=== PATIENT | female | born 1985 | race Caucasian/White ===

== ENCOUNTER 2017-04-10 00:01 | Outpatient (CLI) | payer OTHER, MEDICARE, SELFPAY ==
[2017-04-20 17:45] LABS: Absolute Lymphocyte Count 1.67 X10^3/ul (0.83-4.51); Absolute Neutrophil Count 6.1 X10^3/uL (2.0-7.7); Basophil# 0.02 X10^3/uL; Basophil% 0.2 % (0-1); Eosinophils% 1.2 % (0-5); Hematocrit 32.4 % (37-47); Lymphocyte # 1.67 X10^3/ul (4.0); Mean Corpuscular Hgb 30.2 pg (27.0-32.0); Mean Platelet Vol. 10.6 fl (6.2-12.0); Monocyte# 0.43 X10^3/uL; Monocyte% 5.2 % (0-10); Neutrophil % 73.3 % (47-70); Platelet Count 219 K/mm3 (150-450); RBC Distribution Width CV 13.7 % (11.6-14.6); RBC Distribution Width SD 43.2 fl (35.1-43.9); Red Blood Count 3.64 M/mm3 (4.2-5.4); White Blood Count 8.3 K/mm3 (4.4-11.0)
[2017-04-20 17:46] LABS: POSITIVE COUNT NO; POSITIVE DIFFERENTIAL NO; POSITIVE MORPHOLOGY NO
--- OUTSIDE RECORDS SUMMARY | 2017-07-28 12:05 | XMS RPT_ITS ---
:1985 Author Organization OHIP Care Team Providers Name Role Phone LUCY CHEUNG Attending Unavailable LUCY CHEUNG Attending Unavailable SKYE LUCY Mari Referring Unavailable SKYE LUCY Mari Attending Unavailable SKYE LUCY L Referring Unavailable SKYE LUCY L Referring Unavailable SKYE LUCY L Attending Unavailable SKYE LUCY L Referring Unavailable JOE MEJIA Attending Unavailable SKYE LUCY L Referring Unavailable SKYE LUCY L Attending Unavailable ELENA DUNHAM (PARTS SALVAGER) Attending Unavailable ELENA DUNHAM (PARTS SALVAGER) Referring Unavailable Elena Dunham CHIEF PETROLEUM ENGINEER-C Attending Unavailable Joe Yun Primary Care Unavailable PROBLEMS PROBLEMS DATE TYPE CONDITION / CODE ATTENDING STATUS SOURCE 06/28/2017 Active Anemia Active [facility] complicating [facility] , Repository unspecified trimester / O99.019(ICD-10) 06/01/2017 Active 26 weeks gestation NA Active [facility] of / [facility] Z3A.26(ICD-10) Repository 06/01/2017 Active Encounter for NA Active [facility] supervision of [facility] other normal Repository , second trimester / Z34.82(ICD-10) 06/01/2017 Active Anemia NA Active [facility] complicating [facility] , third Repository trimester / O99.013(ICD-10) 05/03/2017 Active Supervision of NA Active [facility] with [facility] history of Repository pre-term labor, unspecified trimester / O09.219(ICD-10) 05/03/2017 Active Supervision of Active [facility] other high risk [facility] pregnancies, Repository second trimester / O09.892(ICD-10) 10/20/2015 Active Iron deficiency NA Active [facility] anemia, [facility] unspecified / Repository D50.9(ICD-10) 05/03/2017 Active 22 weeks gestation NA Active [facility] of / [facility] Z3A.22(ICD-10) Repository PROCEDURES PROCEDURES No Procedure Records FoundRESULTS RESULTS CNPN Observed: 07/05/2017 Status: COMPLETED Source: [place] 12:00 AM [facility] REPOSITORY Telephone (WOOB) -------NARDA ROSEN ([id number]) 1985 [facility] Time Provider Department07/05/17 LUCY CHEUNG WOOB During your visit today, we recorded the following information about you:Brenda Campbell RN 07/05/2017 10:07 AM SignedPatient is 31w1d . Was seen for last OB check on 06/28 and talked withDr Skye about cough. Patient states symptoms resolved and now today hascough that has returned. has sdeveloped a cough as well. Denies anyfever, shortness of breath, dyspnea or congestion. Baby active. Denies anyvaginal bleeding or abnormal discharge. States she has occasional BraxtonHicks. Next OB visit 07/12. Patient advised to run humidifier, cough drops,Robitussin. See PCP is symptoms worsen, develops a fever or PRN. See us ifdecreased FM or PRN problemsLilibeth Toscano RN 2017 1:44 PM SignedPatient calling to say she was instructed to call PCP for symptoms below. Shesays she had these same symptoms about 3 weeks ago. She states that the dayshe began with cough 3 weeks ago and today she coughed clear mucous with bloodtinge. She has no nasal drainage. She is using humidifier, cough drops andRobitussin as previously instructed. She is asking for PCP recommendationPlease review and advise.Padmini Vail MD 2:46 PM SignedOkay to try Delsym over the counter cough med. Would try this beforeconsidering cough meds with codeine.Follow up of signs of possible bacterial infection to determine if need .abt.Janet Capps LPN 07/05/2017 3:43 PM SignedPatient notified of results and provider' s instructions. Patient verbalizesunderstanding.Janet Cheung MD 2017 5:39 PM Signedagree w/ below. Lucy Cheung, [facility] Centerergies As of Date: 07/05/2017 Noted Allergy ReactionLATEX 02/17/2011 10 - AnaphylaxisDate Reviewed: 06/28/2017Reviewed by: Lucy Cheung - Fully AssessedReason for Visit: Cough [28]Prescriptions as of 07/05/2017 Sig: OSELTAMIVIR 75 MG CAPSULE VITAMIN, CALCIUM,MINE* Take 1 tablet by mouth once d* LANSOPRAZOLE 30 MG CAPSULE,DE* Take 1 capsule by mouth twice* CATHETER 12 FR 12 Slovenian catheter for self c* CATHETER 12 FR Use 6 to 8 times daily and as*Problem List As Of Date 07/05/2017 Noted Resolved Neurogenic bladder [N31.9] INVALID FOR* More... Closed spina bifida (HCC) [Q05.9] More... Anemia [D64.9] More... Insomnia [G47.00] SUPRF HIGH RISK NEC [V23.89] [O09.899]INVALID FOR*04/02/2014 More... Patient request for diagnostic testing [Z01.89] INVALID FOR*03/06/2012 More... GBS (group B Streptococcus carrier), +RV cultur*INVALID FOR*02/21/2014 More... Short stature [R62.52] INVALID FOR* History of delivery, currently *INVALID FOR* More... History of delivery [Z87.51] INVALID FOR*01/14/2016 More... Supervision of other high risk pregnancies, sec*INVALID FOR* Antepartum anemia in second trimester [O99.012] INVALID FOR*01/14/2016 More... Iron deficiency anemia [D50.9] INVALID FOR* More... Iron malabsorption [K90.9] INVALID FOR* Late care affecting in secon*INVALID FOR* More... Status:Closed by JANET CAPPS LPN on 07/05/17 CBC AND DIFFERENTIAL Collected: 06/28/2017 Status: F Source: [place] 11:02 AM [facility] [place] REPOSITORY TYPE CODE TESTS RESULT OUT OF REFERENCE UNITS RANGE LAB WBC High 3.70-11.00 k/uL WBC 16.14 LAB RBC Low 3.90-5.20 m/uL RBC 3.53 LAB HGB Low 11.5-15.5 g/dL Hemoglobin 10.2 LAB HCT Low 36.0-46.0 % Hematocrit 33.5 LAB MCV 80.0-100.0 fL MCV 94.9 LAB MCH 26.0-34.0 pG MCH 28.9 LAB MCHC Low 30.5-36.0 g/dL MCHC 30.4 LAB RDWCV 11.5-15.0 % RDW-CV 13.1 LAB PLTCT 150-400 k/uL Platelet 350 Count LAB MPV 9.0-12.7 fL MPV 10.5 LAB ANEUT % Neut% 84.2 LAB AANEUT High 1.45-7.50 k/uL Abs Neut 13.59 LAB ALYMP % Lymph% 10.2 LAB AALYMP 1.00-4.00 k/uL Abs Lymph 1.64 LAB AMONO % Harney% 4.5 LAB AAMONO <0.87 k/uL Abs Harney 0.73 LAB AEOS % Eosin% 0.9 LAB AAEOS <0.46 k/uL Abs Eosin 0.15 LAB ABASO % Baso% 0.2 LAB AABASO <0.11 k/uL Abs Baso 0.03 LAB AUNRBC High 0 /100 WBC NRBCs 0.1 LAB ABNRBC High <0.01 k/uL Absolute nRBC 0.01 LAB DTYP DTYPE Auto Diff Performed By: #### CBCDIF ####[facility], [place] [phone] CBC AND DIFFERENTIAL Collected: 06/01/2017 Status: F Source: [place] 1:23 PM [facility] REPOSITORY TYPE CODE TESTS RESULT OUT OF REFERENCE UNITS RANGE LAB WBC 3.70-11.00 k/uL WBC 7.52 LAB RBC Low 3.90-5.20 m/uL RBC 3.66 LAB HGB Low 11.5-15.5 g/dL Hemoglobin 11.2 LAB HCT Low 36.0-46.0 % Hematocrit 34.9 LAB MCV 80.0-100.0 fL MCV 95.4 LAB MCH 26.0-34.0 pG MCH 30.6 LAB MCHC 30.5-36.0 g/dL MCHC 32.1 LAB RDWCV 11.5-15.0 % RDW-CV 13.4 LAB PLTCT 150-400 k/uL Platelet 204 Count LAB MPV 9.0-12.7 fL MPV 11.6 LAB ANEUT % Neut% 75.1 LAB AANEUT 1.45-7.50 k/uL Abs Neut 5.64 LAB ALYMP % Lymph% 19.0 LAB AALYMP 1.00-4.00 k/uL Abs Lymph 1.43 LAB AMONO % Harney% 4.5 LAB AAMONO <0.87 k/uL Abs Harney 0.34 LAB AEOS % Eosin% 1.3 LAB AAEOS <0.46 k/uL Abs Eosin 0.10 LAB ABASO % Baso% 0.1 LAB AABASO <0.11 k/uL Abs Baso <0.03 LAB AUNRBC 0 /100 WBC NRBCs 0.0 LAB ABNRBC <0.01 k/uL Absolute nRBC <0.01 LAB DTYP DTYPE Auto Diff Performed By: #### CBCDIF, IRON, FERR ####[address] [phone] IRON AND TIBC Collected: 06/01/2017 Status: F Source: [place] 1:23 PM [facility] REPOSITORY TYPE CODE TESTS RESULT OUT OF REFERENCE UNITS RANGE LAB IRN 41-186 ug/dL Iron 157 LAB TIBC High 232-386 ug/dL TIBC 400 LAB SAT 15-57 % Transferrin 39 Saturatn Performed By: #### CBCDIF, IRON, FERR ####[address] [phone] FERRITIN Collected: 06/01/2017 Status: F Source: [place] 1:23 PM [facility] REPOSITORY TYPE CODE TESTS RESULT OUT OF REFERENCE UNITS RANGE LAB FERR 14.7-205.1 ng/mL Ferritin 25.9 Performed By: #### CBCDIF, IRON, FERR ####[facility] [address] [place], [place] [phone] 50G, 1HR GEST. Collected: 06/01/2017 Status: F Source: [place] GSCRN 1:23 PM [facility] REPOSITORY TYPE CODE TESTS RESULT OUT OF REFERENCE UNITS RANGE LAB GLUP 74-134 mg/dL Glucose 114 Screen, Preg Result Comment: [place] [employer] ([place]) guidelines state a gestational diabetes mellitus positive screen is made, in women not previously diagnosed with overt diabetes, when the 1 hr plasma glucose level is equal to or above 140 mg/dL. The [facility] [employer] [facility] [place] recommends a 135 mg/dL cutoff. Performed By: #### GLTGST ####[facility] [address] [place], [place] [phone] HOSP Observed: 06/01/2017 Status: COMPLETED Source: [place] 12:00 PM [facility] REPOSITORY Routine Office Visit (WOOB) -------NARDA ROSEN ([id number]) 1985 [facility] Time Provider Department06/01/17 12:00 PM LUCY CHEUNG WOOB During your visit today, we recorded the following information about you: Blood pressure Weight 108/62 47.2 kgTabatha [facility] 06/01/2017 12:12 PM SignedSEQUENTIAL SCREENINGSThe [facility] offers sequential screenings for women who are interestedin screenings for chromosomal abnormalities and certain defects during apregnancy. The sequential screen combines ultrasound and blood tests todetermine the risk of chromosomal abnormalities, including Down's Syndrome( Trisomy 21) and Trisomy 18, as well as open neural tube defects includingspina bifida. Ultrasound examination is performed between 11 weeks and 13 weeksgestational age. Blood tests are drawn after the ultrasound and again later inthe between 15 and 21 weeks gestational age. Please let yourphysician know if you are interested in this testing. It will require anappointment with our medical laboratory technicians. This is not an ultrasound performedby a physician in our office during a routine visit.SIGNS AND SYMPTOMS OF LABOR1. Contractions every 10 minutes or more often2. Clear, pink, or brownish fluid (water) leaking from vagina3. Feeling that baby is pushing down, pressure4. Low, dull backache5. Cramps that feel like a period6. Cramps with or without diarrheaIf you notice any of the above symptoms, contact our office at [phone] andask to speak with a nurse.After hours, you can call doctors registry at [phone] OR call [facility] at [phone] and ask to have the doctor aviation technician aircraft paged.If you consider this an emergency, dial 9 1-4 or go to your nearest emergencydepartment.NEED HELP? Are you dealing with a violent or abusive relationship? Are you avictim of rape or sexual assult? Call [facility] ([place]) 24 hourCrisis Hotline: 421.536.8368 or 898-074-9086. MANUALYour Guide to a Healthy manual is now on-line. [email or web address] to download your free copyReferring Provider: LUCY CHEUNG [[id number]]Allergies As of Date: 06/01/2017 Noted Allergy ReactionLATEX 02/17/2011 10 - AnaphylaxisDate Reviewed: 06/01/2017Reviewed by: Gwendolyn Schaefer Ma - Fully AssessedReason for Visit: Care [86]Primary Visit Diagnosis:26 weeks gestation of [Z3A.26] Other Visit Diagnoses :Encounter for supervision of other normal in second trimester [Z34.82] Antepartum anemia complicating in third trimester [O99.013]Order(s):URINE OB DIP B/O [[id number]] Order #: [id number] CBC + DIFF [SQCBCDIF] Order #: [id number] FUTURE GEST GLUC SCREEN, 1-HR, 50 GM, NON-FASTING [ SQGLTGST] Order #: [id number] FUTURE FERRITIN BLD [SQFERR] Order #: [id number] FUTURE IRON + TIBC [SQIRON] Order #: [id number] FUTUREPrescriptions as of 06/01/2017 Sig: VITAMIN,CALCIUM,MINE* Take 1 tablet by mouth once d* CATHETER 12 FR 12 Slovenian catheter for self c* CATHETER 12 FR Use 6 to 8 times daily and as* LANSOPRAZOLE 30 MG CAPSULE,DE* Take 1 capsule by mouth twice*Problem List As Of Date 06/01/2017 Noted Resolved Neurogenic bladder [N31.9] INVALID FOR* More... Closed spina bifida (HCC) [Q05.9] More... Anemia [D64.9] More... Insomnia [G47.00] SUPRF HIGH RISK NEC [V23.89] [O09.899]INVALID FOR*04/02/2014 More... Patient request for diagnostic testing [Z01.89] INVALID FOR*03/06/2012 More... GBS (group B Streptococcus carrier), +RV cultur*INVALID FOR*02/21/2014 More... Short stature [R62.52] INVALID FOR* History of delivery, currently *INVALID FOR* More... History of delivery [Z87.51] INVALID FOR*01/14/2016 More... Supervision of other high risk pregnancies, sec*INVALID FOR* Antepartum anemia in second trimester [O99.012] INVALID FOR*01/14/2016 More... Iron deficiency anemia [D50.9] INVALID FOR* More... Iron malabsorption [K90.9] INVALID FOR* Late care affecting in secon*INVALID FOR* More... Other instructions from your clinician: SEQUENTIAL SCREENINGS The [facility] offers sequential screenings for women who are interested in screenings for chromosomal abnormalities and certain defects during a . The sequential screen combines ultrasound and blood tests to determine the risk of chromosomal abnormalities, including Down's Syndrome (Trisomy 21) and Trisomy 18, as well as open neural tube defects including spina bifida. Ultrasound examination is performed between 11 weeks and 13 weeks gestational age. Blood tests are drawn after the ultrasound and again later in the between 15 and 21 weeks gestational age. Please let your physician know if you are interested in this testing. It will require an appointment with our medical laboratory technicians. This is not an ultrasound performed by a physician in our office during a routine visit. SIGNS AND SYMPTOMS OF LABOR 1. Contractions every 10 minutes or more often 2. Clear, pink, or brownish fluid (water) leaking from vagina 3. Feeling that baby is pushing down, pressure 4. Low, dull backache 5. Cramps that feel like a period 6. Cramps with or without diarrhea If you notice any of the above symptoms, contact our office at [phone] and ask to speak with a nurse. After hours, you can call doctors registry at OR call [facility] at [phone] and ask to have the doctor aviation technician aircraft paged. If you consider this an emergency, dial 1-5-4 or go to your nearest emergency department. NEED HELP? Are you dealing with a violent or abusive relationship? Are you a victim of rape or sexual assult? Call [facility] ([place]) 24 hour Crisis Hotline: 298.919.7060 or . MANUAL Your Guide to a Healthy manual is now on-line. Visit [email or web address] to download your free copyDisposition : Return in about 2 weeks (around 06/15/2017) for routine OB check.Follow- up and Disposition History RecordedEncounter Number: [id number] Status:Closed by LUCY CHEUNG MD on 06/01/17 GOYO Observed: 05/05/2017 Status: COMPLETED Source: [place] 12:00 AM [facility] REPOSITORY Telephone (WOOB) -------NARDA ROSEN ([id number]) 1985 [facility] Time Provider Mqeksnnokx51/15/17 LUCY CHEUNG WOOB During your visit today, we recorded the following information about you:Jesica Cullen RN 05/05/2017 10: 33 AM SignedPatient 22w3d was seen in office on 05/03/17 for New OB. Patient states shethought a prescription was going to be sent to the pharmacy for her for PNV's.Please review and order PNV , pharmacy up to date. Will only call patient backif there is a problem.Jesica Cheung MD 05/05/2017 5:09 PM Signedcompleted thanks. Ryann Castillo MD 05/05/2017 5:10 PM SignedLet her know higher than normal dose of bacteria in her urine. Rx given forthis as well. Ryann Castillo MD 05/05/2017 5:11 PM SignedAddended by: LUCY CHEUNG MD on: 05/05/2017 05:11 PM Modules accepted: Daniel Cullen RN 05/08/2017 9:12 AM SignedPatient notified of results, verbalizes understanding of instructions.Jesica Cullen RNAllergies As of Date: 05/05/2017 Noted Allergy ReactionLATEX 02/17/2011 10 - AnaphylaxisDate Reviewed: 2016Reviewed by: Joe Mejia - Fully AssessedReason for Visit: Care [86]Order(s):[id number] ( PLUS DHA) 18 mg iron-800 mcg-290 mg cpptTake 1 tablet by mouth once daily.Disp: 30 tabletRfl: 12 amoxicillin (POLYMOX, AMOXIL) 500 mg capsuleTake 1 capsule by mouth three times daily for 5 days. FOR 7 DAYS.Disp: 15 capsuleRfl: 0Prescriptions as of 05/05/2017 Sig: VIT-IRON 18 MG-FOLAT* Take 1 tablet by mouth once d* AMOXICILLIN 500 MG CAPSULE Take 1 capsule by mouth three* LANSOPRAZOLE 30 MG CAPSULE,DE* Take 1 capsule by mouth twice* NORGESTIMATE 0.25 MG-ETHINYL * Take 1 tablet by mouth once d* CATHETER 12 FR 12 Slovenian catheter for self c* CATHETER 12 FR Use 6 to 8 times daily and as* Problem List As Of Date 05/05/2017 Noted Resolved Neurogenic bladder [N31.9] INVALID FOR* More... Closed spina bifida (HCC) [Q05.9] More... Anemia [D64.9] More... Insomnia [G47.00] SUPRF HIGH RISK NEC [V23.89] [O09.899]INVALID FOR* 04/02/2014 More... Patient request for diagnostic testing [Z01.89] INVALID FOR*2011 More... GBS (group B Streptococcus carrier), +RV cultur*INVALID FOR*02/21/2014 More... Short stature [R62.52] INVALID FOR* History of delivery, currently *INVALID FOR* More... History of delivery [Z87.51] INVALID FOR*01/14/2016 More... Supervision of other high risk pregnancies, sec* INVALID FOR* Antepartum anemia in second trimester [O99.012] INVALID FOR*01/14/2016 More... Iron deficiency anemia [D50.9] INVALID FOR* More... Iron malabsorption [K90.9] INVALID FOR* Late care affecting in secon*INVALID FOR* More...Prescriptions ordered this encounter Disp Refills Start End VIT-IRON 18 MG-FOLATE 800 M* 30 t* 12 05/05/2017 Route: ORAL Sig: Take 1 tablet by mouth once daily. AMOXICILLIN 500 MG CAPSULE 15 c* 0 05/05/2017 05/10/2017 Route: ORAL Sig: Take 1 capsule by mouth three times daily for 5 days. FOR 7 DAYS. Status:Closed by LUCY CHEUNG MD on 05/05/17 PROGRESS Observed: 05/03/2017 Status: COMPLETED Source: [place] 9:49 AM [facility] REPOSITORY O ID: [id number]: Joe Walterervice: (none) Author Type: PhysicianType: Progress NotesFiled: 05/03/2017 9:50 AMNote Text:A sherwood? fetus in utero with symmetric measurementsAdequate growth (AGA).Estimated Date of Delivery: 09/05/17EGA = 38o6jFam anatomy appears normal. There are no evident malformations and/or effusions.The amniotic fluid volume is within normal limits.The sensitivity of ultrasound in the detection of malformations overall isapproximately 35%.There is no height or weight on file to calculate BMI.RECOMMENDATIONS:- Follow up ultrasound as clinically indicated TYPE AND SCR,PRENATL Collected: 05/03/2017 Status: F Source: [place] 9:37 AM [facility] REPOSITORY TYPE CODE TESTS RESULT OUT OF REFERENCE UNITS RANGE LAB %ABR ABO/RH(D) O POSITIVE LAB % Antibody NEG Screen Performed By: #### TSPN ####[facility], [place] [phone] Observed: 05/03/2017 Status: F Source: [place] URINE CULTURE 9:37 AM [facility] REPOSITORY Sp. Request/Comment: - Specimen received in preservativeCulture Result - >=100,000 CFU/ml Escherichia coli --> ABNORMAL ALERTORGANISM: Escherichia coliMETHOD: Minimum inhibitory concentration(Vitek)Antibiotic Interp SNEHA StatusAmpicillin SUSCEPTIBLE 4 FGentamicin SUSCEPTIBLE <=1 FTrimeth sulfameth SUSCEPTIBLE <=20 FCefazolin SUSCEPTIBLE <=4 FCLSI breakpoints for therapy of uncomplicated UTI's due to E.coli, K.pneumoniae, and P.mirabilis were applied and may be used to predict the activity of oral agents(cefaclor, cefdinir, cefpodoxime, cefprozil, cefuroxime, cephalexin, loracarbef).Ciprofloxacin SUSCEPTIBLE <=0.25 FNitrofurantoin SUSCEPTIBLE <=16 FCefepime SUSCEPTIBLE <=1 FPiperacillin/Tazobac SUSCEPTIBLE <=4 FAmpicillin Sulbact SUSCEPTIBLE <=2 FCeftriaxone SUSCEPTIBLE <=1 FMeropenem SUSCEPTIBLE <=0.25 FErtapenem SUSCEPTIBLE <=0.5 F Performed By: #### URCUL ####[facility] [address] [place], [place] [phone] CBC AND DIFFERENTIAL Collected: 05/03/2017 Status: F Source: [place] 9:36 AM [facility] REPOSITORY TYPE CODE TESTS RESULT OUT OF REFERENCE UNITS RANGE LAB WBC 3.70-11.00 k/uL WBC 7.42 LAB RBC Low 3.90-5.20 m/uL RBC 3.87 LAB HGB 11.5-15.5 g/dL Hemoglobin 11.6 LAB HCT 36.0-46.0 % Hematocrit 36.3 LAB MCV 80.0-100.0 fL MCV 93.8 LAB MCH 26.0-34.0 pG MCH 30.0 LAB MCHC 30.5-36.0 g/dL MCHC 32.0 LAB RDWCV 11.5-15.0 % RDW-CV 14.2 LAB PLTCT 150-400 k/uL Platelet 218 Count LAB MPV 9.0-12.7 fL MPV 11.3 LAB ANEUT % Neut% 75.3 LAB AANEUT 1.45-7.50 k/uL Abs Neut 5.58 LAB ALYMP % Lymph% 19.1 LAB AALYMP 1.00-4.00 k/uL Abs Lymph 1.42 LAB AMONO % Harney% 4.4 LAB AAMONO <0.87 k/uL Abs Harney 0.33 LAB AEOS % Eosin% 0.9 LAB AAEOS <0.46 k/uL Abs Eosin 0.07 LAB ABASO % Baso% 0.3 LAB AABASO <0.11 k/uL Abs Baso <0.03 LAB AUNRBC 0 /100 WBC NRBCs 0.0 LAB ABNRBC <0.01 k/uL Absolute nRBC <0.01 LAB DTYP DTYPE Auto Diff Performed By: #### CBCDIF, IRON, FERR, HBSAG, HIV12C, RUBIGG, SYPHGX #### [address] [phone] IRON AND TIBC Collected: 05/03/2017 Status: F Source: [place] 9:36 AM [facility] REPOSITORY TYPE CODE TESTS RESULT OUT OF REFERENCE UNITS RANGE LAB IRN 41-186 ug/dL Iron 43 LAB TIBC High 232-386 ug/dL TIBC 453 LAB SAT Low 15-57 % Transferrin 9 Saturatn Performed By: #### CBCDIF, IRON, FERR, HBSAG, HIV12C, RUBIGG, SYPHGX #### [address] [phone] FERRITIN Collected: 05/03/2017 Status: F Source: [place] 9:36 AM [facility] REPOSITORY TYPE CODE TESTS RESULT OUT OF REFERENCE UNITS RANGE LAB FERR 14.7-205.1 ng/mL Ferritin 17.3 Performed By: #### CBCDIF, IRON, FERR, HBSAG, HIV12C, RUBIGG, SYPHGX #### [place] [id number] [place], [place] [phone] HEPATITIS B SURF. AG Collected: 05/03/2017 Status: F Source: [place] 9:36 AM [facility] REPOSITORY TYPE CODE TESTS RESULT OUT OF REFERENCE UNITS RANGE LAB HBSAG Negative Hepatitis B Negative Surf. Ag Performed By: #### CBCDIF, IRON, FERR, HBSAG, HIV12C, RUBIGG, SYPHGX #### [address] [phone] HIV 12 COMBO (AG/AB) Collected: 05/03/2017 Status: F Source: [place] 9:36 AM [facility] REPOSITORY TYPE CODE TESTS RESULT OUT OF REFERENCE UNITS RANGE LAB HVAGAB Non Reactive HIV Non 12 Ag/Ab Reactive Result Comment: (NOTE)HIV Information: [place] Rev. Code 3701.243(E):This information has been disclosed to you from confidential recordsprotected from disclosure by state law. You shall make no furtherdisclosure of this information without the specific, written, andinformed release of the individual to whom it pertains, or asotherwise permitted by state law. A general authorization for therelease of medical or other information is not sufficient for thepurpose of the release of HIV test results or diagnoses. Performed By: #### CBCDIF, IRON, FERR, HBSAG, HIV12C, RUBIGG, SYPHGX #### [address] [id number] [place], [place] [phone] RUBELLA IGG ANTIBODY Collected: 05/03/2017 Status: F Source: [place] 9:36 AM [facility] REPOSITORY TYPE CODE TESTS RESULT OUT OF RANGE REFERENCE UNITS LAB RUBGQL Abnormal Negative Rubella Alert IgG Ab, Qual Positive Result Comment: Sample is considered positive for IgG antibodies to rubella virus.A positive result indicates previous exposure to Rubella virus or vaccination.Result rechecked. LAB RUBQNT Index Value Rubella IgG 1.09 Ab Result Comment: Index values are interpreted as follows:Negative specimens <0.90Equivocol specimens 0.90 to 0.99Positive specimens >0.99The magnitude of the measured result is not indicative of the amount of antibody present.Result rechecked. Performed By: #### CBCDIF, IRON, FERR, HBSAG, HIV12C, RUBIGG, SYPHGX #### [place] [id number] [place], [place] [phone] SYPHILIS IGG WITH Collected: 05/03/2017 Status: F Source: [facility] 9:36 AM [facility] TYPE CODE TESTS RESULT OUT OF REFERENCE UNITS RANGE LAB SYPHQL Nonreactive Nonreactive Syphilis IgG, Qual Result Comment: In conjunction with this result, the immune status of the patient should be evaluated based on their clinical status, related risk factors, and other diagnostic test results. LAB SYPHLG AI Syphilis IgG <0.2 Result Comment: Antibody index is interpreted as follows:Non reactive SPECIMENS <=0.8Weak reactive SPECIMENS 0.9 to 5.9Reactive SPECIMENS >=6.0 Performed By: #### CBCDIF, IRON, FERR, HBSAG, HIV12C, RUBIGG, SYPHGX #### [id number] [place], [place] [phone] GC/CHLAMYDIA AMPLIF Collected: 05/03/2017 Status: F Source: [place] 9:07 AM [facility] TYPE CODE TESTS RESULT OUT OF REFERENCE UNITS RANGE LAB GCCTSR GC/Chlam Amp Cervix Source LAB GCAMPL GC Amplification Negative for Neisseria gonorrhoeae by amplification. LAB CLAMPL Chlamydia Amplif Negative for Chlamydia trachomatis by amplification. Performed By: #### GCCT ####[id number] [place], [place] [phone] HOSP Observed: 05/03/2017 Status: COMPLETED Source: [place] 8:45 AM [facility] Routine Office Visit (WOOB) -------TAMMIENARDA HURST ([id number]) 1985 FDate Time Provider Lljgtsqomx61/13/17 8:45 AM JOE MEJIA During your visit today, we recorded the following information about you:Joe Mejia MD 05/03/2017 9:50 AM SignedA sherwood? fetus in utero with symmetric measurementsAdequate growth (AGA) .Estimated Date of Delivery: 09/05/17EGA = [id number] anatomy appears normal. There are no evident malformations and /oreffusions.The amniotic fluid volume is within normal limits.The sensitivity of ultrasound in the detection of malformations overall isapproximately 35%.There is no height or weight on file to calculate BMI.RECOMMENDATIONS:- Follow up ultrasound as clinically indicatedReferring Provider: LUCY CHEUNG [[id number]]Allergies As of Date: 05/03/2017 Noted Allergy ReactionLATEX 02/17/2011 10 - AnaphylaxisDate Reviewed: 2016Reviewed by: Joe Mejia - Fully AssessedPrimary Visit Diagnosis:22 weeks gestation of [ Z3A.22] Other Visit Diagnosis:Encounter for anatomic survey [Z36.89]Prescriptions as of 05/03 Sig: LANSOPRAZOLE 30 MG CAPSULE,DE* Take 1 capsule by mouth twice* NORGESTIMATE 0.25 MG-ETHINYL * Take 1 tablet by mouth once d* CATHETER 12 FR 12 Slovenian catheter for self c* CATHETER 12 FR Use 6 to 8 times daily and as*Problem List As Of Date 05/03/2017 Noted Resolved Neurogenic bladder [N31.9] INVALID FOR* More... Closed spina bifida (HCC) [Q05.9] More... Anemia [D64.9] More... Insomnia [G47.00] SUPRF HIGH RISK NEC [V23.89] [O09.899]INVALID FOR*04/02/2014 More... Patient request for diagnostic testing [Z01.89] INVALID FOR*03/06/2012 More... GBS (group B Streptococcus carrier), +RV cultur*INVALID FOR*02/21/2014 More... Short stature [R62.52] INVALID FOR* History of delivery, currently *INVALID FOR* More... History of delivery [Z87.51] INVALID FOR*01/14/2016 More... Supervision of other high risk pregnancies, sec*INVALID FOR* Antepartum anemia in second trimester [O99.012] INVALID FOR*01/14/2016 More... Iron deficiency anemia [D50.9] INVALID FOR* Iron malabsorption [K90.9] INVALID FOR* Late care affecting in secon*INVALID FOR* More... Status: Closed by JOE MEJIA MD on 05/03/17 PROGRESS Observed: 05/03/2017 Status: COMPLETED Source: [place] 8:23 AM [facility] [place] REPOSITORY HNO ID: [id number]: Lucy Sandhu: (none) Author Type: PhysicianType: Progress NotesFiled: 05/03/2017 9:12 AMNote Text:INITIAL OB ASSESSMENTOB Provider: Lucy Cheung MDHPI: Narda Rosen is a 32 year old female here to establishObstetrical Care. Patient's last menstrual period was 01/08/2017. from OBDating Form. Cycle length: irreg daysComplaints: NonePregnancy was unplanned but accepted.Obstetric History T2 L3 SAB0 TAB0 Ectopic0 Multiple0 Live Jmphxw8Smgka : neverHistory of 4th degree laceration: NoPatient's Risk Screening for delivery:Have you had a prior sherwood between 20w and 36w6d?: NoHistory of abnormal pap : NoPrior treatment for cervical dysplasia: none.History of STDs: NoneTobacco use : NoCaffeine use: NoDrug use: NoAlcohol use: NoMultivitamin with Folic acid: YesOccupation: homemakerJewish or heritage: NoWould refuse blood transfusion if medically necessary: NoBMI 20.56 kg/(m2) Patient BMI over 30? NoMarital Status:MarriedPartner: Name: Dk Age: 28 Occupation: general RV Gender: male History of STDs: NonePAST MEDICAL HISTORYDiagnosis Date- Anemia- FRACTURE 2011 TOE- Insomnia- Scoliosis- Spinal bifida, closedPAST SURGICAL HISTORYProcedure Laterality Date- PAST SURGICAL HISTORY OF shunt placement in infancy or childhood (awaiting records)- PAST SURGICAL HISTORY OF EYE SURGERY- PAST SURGICAL HISTORY OF MULTIPLE SPINAL SURGERIESCurrent Outpatient Prescriptions on File Prior to Visit:lansoprazole (PREVACID) 30 mg capsule Take 1 capsule by mouth twice daily.norgestimate 0.25 mg-ethinyl estradiol 35 mcg (SPRINTEC) 0.25-35 mg- mcgper tablet Take 1 tablet by mouth once daily.Catheter 12 Fr misc 12 Slovenian catheter for self catheterizing REF 212 foruse 6-7 times a dayCatheter 12 Fr misc Use 6 to 8 times daily and as needed DX [phone] current facility-administered medications on file prior to visit.Review of Systems:GENERAL: Negative for: Fever or ChillsHEENT: Negative for: Headache, Impaired Vision, Ringing in Ears,NosebleedsNECK: Negative for: Swelling, Pain, StiffnessRESPIRATORY: Negative for: Cough, Shortness of breath, WheezingGASTROINTESTINAL: Negative for: Heartburn, Constipation, Diarrhea, Bloodin stool, VomitingMUSCULOSKELETAL: Negative for: Muscle or joint pain, stiffness, JointswellingNEUROLOGIC/PSYCHIATRIC: Negative for: Weakness, Paralysis, Numbness,Tingling, Tremor, Anxiety, Depression, Memory lossSKIN: Negative for: Rash, ItchingGENITOURINARY: Negative for: vaginal itching, vaginal discharge, PHYSICAL EXAM: Ht 4' 9 (1.45m) Wt 95 lb (43.1kg) LMP 01/08/2017 BMI20.55 kg/(m2) .GENERAL: pleasant female in no apparent distressDERMATOLOGY: Normal, without lesions, non-icteric and non-hirsuteNECK: Supple, full range of motion, no adenopathy and thyroid normalCHEST: Normal inspiratory effortBREAST: soft, non-tender, symmetric, no dominant mass, normalnipple-areolar complex, no lymphadenopathy and no nipple dischargeABDOMEN: soft, non-tender and no massesNEURO: alert and oriented x3, exam grossly non-focalPELVIS: External genitalia normal without lesions. Perineal body intact.No vaginal or cervical lesions. Cervix closed. Uterus 20 week size. Noadnexal masses or tenderness.Clinical Pelvimetry: Pelvimetry clinically assessed as adequateLimited OB ultrasound exam: ordered formal scanASSESSMENT: 32 year old at 22 wks gestational agePLAN:1) Patient oriented to practice.Discussed nutrition, folic acid supplementation, dietary guidelines,exercise, smoking, alcohol, caffeine, and drug use.Discussed routine OB labs including STD/HIV.CF carrier screening discussed and declinesh/o PTD first , subsequent pregnancies delivered at term w/oprogesterone therapy. Offered progesterone, will not take and checkcervical lengthToo late for sequential screen, may do quad screen depending on dating byUS- US done, 22 weeks, too late for sequentialcheck Fe levels, h/o anemiaFollow up in 4 weeks or sooner prn.Lucy Cheung MD HOSP Observed: 05/03/2017 Status: COMPLETED Source: [place] 8:00 AM [facility] REPOSITORY Initial Office Visit (WOOB) -------NARDA ROSEN ([id number]) 1985 FDate Time Provider Jswjthouit23/13/17 8:00 AM LUCY CHEUNG WOOB During your visit today, we recorded the following information about you: Blood pressure Weight Height Last Period 100/60 43.1 kg 1.448 m 01/08/17Remichael Cheung MD 05/03/2017 9:12 AM SignedINITIAL OB ASSESSMENTOB Provider: Lucy Cheung MDHPI: Narda Rosen is a 32 year old female here to establishObstetrical Care. Patient's last menstrual period was 01/08/2017. from OBDating Form. Cycle length: irreg daysComplaints: NonePregnancy was unplanned but accepted.Obstetric History T2 L3 SAB0 TAB0 Ectopic0 Multiple0 Live Qbkcbf2Ggwgf : neverHistory of 4th degree laceration: Tacho's Risk Screening for delivery:Have you had a prior sherwood between 20w and 36w6d?: NoHistory of abnormal pap: NoPrior treatment for cervical dysplasia: none.History of STDs: NoneTobacco use: NoCaffeine use: NoDrug use: NoAlcohol use: NoMultivitamin with Folic acid: YesOccupation: homemakerJewish or heritage: NoWould refuse blood transfusion if medically necessary: NoBMI 20.56 kg/(m2) Patient BMI over 30? NoMarital Status:MarriedPartner: Name: Dk Age: 28 Occupation: general RV Gender: male History of STDs: NonePAST MEDICAL HISTORYDiagnosis Date- Anemia- FRACTURE 2012 TOE- Insomnia- Scoliosis- Spinal bifida, closedPAST SURGICAL HISTORYProcedure Laterality Date - PAST SURGICAL HISTORY OF shunt placement in infancy or childhood (awaiting records)- PAST SURGICAL HISTORY OF EYE SURGERY- PAST SURGICAL HISTORY OF MULTIPLE SPINAL SURGERIESCurrent Outpatient Prescriptions on File Prior to Visit:lansoprazole (PREVACID) 30 mg capsule Take 1 capsule by mouth twice daily.norgestimate 0.25 mg-ethinyl estradiol 35 mcg (SPRINTEC) 0.25-35 mg-mcg pertablet Take 1 tablet by mouth once daily.Catheter 12 Fr misc 12 Slovenian catheter for self catheterizing REF 212 for use6-7 times a dayCatheter 12 Fr misc Use 6 to 8 times daily and as needed DX [phone] current facility-administered medications on file prior to visit.Review of Systems:GENERAL: Negative for: Fever or ChillsHEENT: Negative for: Headache, Impaired Vision, Ringing in Ears, NosebleedsNECK: Negative for: Swelling, Pain, StiffnessRESPIRATORY: Negative for: Cough, Shortness of breath, WheezingGASTROINTESTINAL: Negative for: Heartburn, Constipation, Diarrhea, Blood instool, VomitingMUSCULOSKELETAL: Negative for: Muscle or joint pain, stiffness, Joint swellingNEUROLOGIC/PSYCHIATRIC: Negative for: Weakness, Paralysis, Numbness, Tingling,Tremor, Anxiety, Depression, Memory lossSKIN: Negative for: Rash, ItchingGENITOURINARY : Negative for: vaginal itching, vaginal discharge,PHYSICAL EXAM: Ht 4' 9ANDquot; (1.45m) Wt 95 lb (43.1kg) LMP 01/08/2017 BMI20.55 kg/(m2).GENERAL: pleasant female in no apparent distressDERMATOLOGY: Normal, without lesions, non-icteric and non-hirsuteNECK: Supple, full range of motion , no adenopathy and thyroid normalCHEST: Normal inspiratory effortBREAST: soft, non-tender, symmetric, no dominant mass, normal nipple-areolarcomplex, no lymphadenopathy and no nipple dischargeABDOMEN: soft, non-tender and no massesNEURO: alert and oriented x3,exam grossly non- focalPELVIS: External genitalia normal without lesions. Perineal body intact. Novaginal or cervical lesions. Cervix closed. Uterus 20 week size. No adnexalmasses or tenderness.Clinical Pelvimetry : Pelvimetry clinically assessed as adequateLimited OB ultrasound exam: ordered formal scanASSESSMENT: 32 year old at 22 wks gestational agePLAN:1) Patient oriented to practice.Discussed nutrition, folic acid supplementation, dietary guidelines, exercise,smoking, alcohol, caffeine, and drug use.Discussed routine OB labs including STD/HIV.CF carrier screening discussed and declinesh/o PTD first , subsequent pregnancies delivered at term w/oprogesterone therapy. Offered progesterone, will not take and check cervicallengthToo late for sequential screen, may do quad screen depending on dating by US-US done, 22 weeks, too late for sequentialcheck Fe levels, h/o anemiaFollow up in 4 weeks or sooner prn.Lucy Cheung, MDReferring Provider: SELF [[id number]]Allergies As of Date: 05/03/2017 Noted Allergy ReactionLATEX 02/17/2011 10 - AnaphylaxisDate Reviewed: 05/03/2017Reviewed by: Joe Mejia - Fully AssessedReason for Visit: Initial OB Visit [4058]Primary Visit Diagnosis: Supervision of other high risk pregnancies, second trimester [O09.892] Other Visit Diagnoses:History of delivery, currently [O09.219] 22 weeks gestation of [Z3A.22] Encounter for screening for infections with predominantly sexual mode of transmission [Z11.3] Genitourinary tract infection in mother during second trimester of [O23.92] Iron deficiency anemia secondary to inadequate dietary iron intake [D50.8] Late care affecting in second trimester [O09.32]Order(s):SYPHILIS IGG WITH CONF [SQSYPHGX] Order #: [id number] FUTURE RUBELLA IGG AB [SQRUBQNT] Order #: [id number] FUTURE HEP B SURF AG SCRN [SQHBSAG] Order #: [id number] FUTURE HIV 1,2 COMBO (AG/AB) [SQHIV12] Order #: [id number] FUTURE TYPE + SCREEN [ SQTSPN] Order #: [id number] FUTURE GC/CHLAMYDIA DNA DET [SQGCCAMP] Order #: [id number] URINE CULTURE [SQURCUL] Order #: [id number]. #:[id number] as of 05/03/2017 Sig: LANSOPRAZOLE 30 MG CAPSULE,DE* Take 1 capsule by mouth twice* NORGESTIMATE 0.25 MG-ETHINYL * Take 1 tablet by mouth once d* CATHETER 12 FR 12 Slovenian catheter for self c* CATHETER 12 FR Use 6 to 8 times daily and as*Problem List As Of Date 05/03/2017 Noted Resolved Neurogenic bladder [N31.9] INVALID FOR* More... Closed spina bifida (HCC ) [Q05.9] More... Anemia [D64.9] More... Insomnia [G47.00] SUPRF HIGH RISK NEC [ V23.89] [O09.899]INVALID FOR*04/02/2014 More... Patient request for diagnostic testing [Z01.89] INVALID FOR*03/06/2012 More... GBS (group B Streptococcus carrier), +RV cultur* INVALID FOR*02/21/2014 More... Short stature [R62.52] INVALID FOR* History of delivery, currently *INVALID FOR* More... History of delivery [Z87.51] INVALID FOR*01/14/2016 More... Supervision of other high risk pregnancies , sec*INVALID FOR* Antepartum anemia in second trimester [O99.012] INVALID FOR*01/14/2016 More... Iron deficiency anemia [D50.9] INVALID FOR* Iron malabsorption [K90.9] INVALID FOR* Late care affecting in charon*INVALID FOR* More... Status:Closed by LUCY CHEUNG MD on 05/03/17 CNPDang Observed: 05/01/2017 Status: COMPLETED Source: [place] 12:00 AM [facility] REPOSITORY Telephone (WOOB) -------NARDA ROSEN ([id number]) 1985 FDa Time Provider Goispghawn76/11/17 LUCY CHEUNG WORUBIN During your visit today, we recorded the following information about you:Irene Tello ONEYDA 05/01/2017 8:14 AM SignedPt calling and stated that she just took a test Monday night and itwas positive. Pt has not had a menses since december and is reporting movement.Pt stated that she is only able to come in to see you every other Monday asthat is when her is off work. They wanted to come in this Monday tosee you but you have no openings. They refused appt for PNOB. Please advisewhen and where you would like them on your schedule. Irene Elisha ALVAREZNRharmeet Cheung MD 05/01/2017 1:24 PM SignedCan she be here at 8 am for appt and we can do US at 0845? Otherwise we mayneed to have her do US and blood work this week and maybe a nurse visit and seeme in 2 weeks. Thanks. Gilberto Castillo RN 05/01/2017 2:51 PM SignedPatient called and New OB and ultrasound appointments scheduled for 05/03/17.Patient wanted to let provider know that she is very appreciative for workingher in.Please file pended ultrasound order. Thank you.Jesica Cheung MD 05/01/2017 3:13 PM Signedthanks. Estrella Castillo As of Date: 05/01/2017 Noted Allergy ReactionLATEX 02/17/2011 10 - AnaphylaxisDate Reviewed: 04/11/2017Reviewed by: Karo Salgado LPN - Fully AssessedReason for Visit: new ob [Other]Primary Visit Diagnosis:Supervision of other high risk pregnancies, second trimester [O09.892] Other Visit Diagnosis:Uncertain dates , antepartum, second trimester [Z34.92]Order(s):OBSTETRIC ULTRASOUND [facility] [[id number]] Order #: [id number]: 1Prescriptions as of 05/01/2017 Sig: LANSOPRAZOLE 30 MG CAPSULE,DE* Take 1 capsule by mouth twice* NORGESTIMATE 0.25 MG-ETHINYL * Take 1 tablet by mouth once d* CATHETER 12 FR 12 Slovenian catheter for self c* CATHETER 12 FR Use 6 to 8 times daily and as*Problem List As Of Date 05/01/2017 Noted Resolved Neurogenic bladder [N31.9] INVALID FOR* More... Closed spina bifida (HCC) [Q05.9] More... Anemia [D64.9] More... Insomnia [G47.00] SUPRF HIGH RISK NEC [V23.89] [O09.899]INVALID FOR*04/02/2014 More... Patient request for diagnostic testing [Z01.89] INVALID FOR*03/06/2012 More... GBS (group B Streptococcus carrier), +RV cultur* INVALID FOR*02/21/2014 More... Short stature [R62.52] INVALID FOR* History of delivery, currently *INVALID FOR*04/02/2014 More... History of delivery [Z87.51] INVALID FOR*01/14/2016 More... Supervision of high risk in third tri*INVALID FOR*01/14/2016 Antepartum anemia in second trimester [O99.012] INVALID FOR*01/14/2016 More... Iron deficiency anemia [D50.9] INVALID FOR* Iron malabsorption [K90.9] INVALID FOR* Status: Closed by LUCY CHEUNG MD on 05/01/17 CBC W/DIFF, AUTOMATED Collected: 04/20/2017 Status: F Source: JOSÉ 5:30 PM [facility] REPOSITORY TYPE CODE TESTS RESULT OUT OF RANGE REFERENCE UNITS LAB L100.1000 Normal 4.4-11.0 K/mm3 WBC 8.3 LAB L100.1200 Low 4.2-5.4 M/mm3 RBC 3.64 LAB L100.1300 Low 12.0-15.0 g/dl HGB 11.0 LAB L100.1400 Low 37-47 % HCT 32.4 LAB L100.1500 Normal 81-99 fL MCV 89.0 LAB L100.1600 Normal 27.0-32.0 pg MCH 30.2 LAB L100.1700 Normal 32-36 g/gl MCHC 34.0 LAB L100.1810 Normal 11.6-14.6 % RDW 13.7 CV LAB L100.1820 Normal 35.1-43.9 fl RDW 43.2 SD LAB L100.1900 Normal 150-450 K/mm3 PLT 219 LAB L100.2000 Normal 6.2-12.0 fl MPV 10.6 LAB L100.2100 High 47-70 % NEUT% 73.3 LAB L100.2200 Normal 19-41 % LY% 20.0 LAB L100.2300 Normal 0-10 % MONO% 5.2 LAB L100.2400 Normal 0-5 % EO% 1.2 LAB L100.2500 Normal 0-1 % BASO% 0.2 LAB L100.2550 Normal 0.0-0.9 % IM 0.100 GRAN % Result Comment: IG% - Immature Granulocytes (promyelocytes, myelocytes andmetamyelocytes) > 1% indicates that a LEFT SHIFT is Present. LAB L100.2620 Normal 2.0-7.7 X10 3/uL Absolute Neut 6.1 LAB L100.2720 Normal 0.83-4.51 X10 3/ul Absolute Lymph 1.67 Performed By: #### L100.0100 ####[facility] [address] [place], [address] PROGRESS Observed: 04/11/2017 Status: COMPLETED Source: [place] 4:05 PM [facility] REPOSITORY HNO ID: [id number]: Elena (Youth Manager) TEENA DunhamService: (none)Author Type: Nurse SpecialistType: Progress NotesFiled: 04/11/2017 4:56 PMNote Text:OUTPATIENT VISIT DATE April 11, 2017OUTPATIENT VISIT TYPEESTABLISHEDPRATRIUM HEALTH WAKE FOREST BAPT[facility] HIGH POINT MEDICAL CENTERRY CARE PHYSICIAN:Joe Yun [facility]ITALIV[facility] COMPLAINT:Patient presents with:PhysicalHistory of Present Illness:Narda Rosen is a 32 year old female who was last seen 2014 by Joe Franks MD.She has been seen in the past forACTIVE PROBLEM LISTNeurogenic BladderClosed Spina Bifida (Hcc)AnemiaInsomniaShort StatureIron Deficiency AnemiaIron MalabsorptionSince the last visit, she states that she has been in her usual state ofhealth. Noted to have followed with Dr. Cheung for high risk .Presents today for physical, no particular complaints other that GERD.Well controlled on current medication, takes daily, twice a day. No reportof abdominal pain, N/V/D, black or tarry stools or blood in stool.History of anemia, last checked 2015. Noted to have iron deficiency,history of malabsorption. Prior iron infusion 10/2015. Seen by Dr. Rocha advised colonscopy following delivery.Continues with urinary catheterization for neurogenic bladder, history ofspina bifida.Reports healthy diet, routine exercise.No recent hospital or ED visits.No new medical problems or medications.Able to obtain medications.No problems with taking medications or note side effects.PAST MEDICAL HISTORYDiagnosis Date- Anemia- FRACTURE 2011 TOE- Insomnia- Scoliosis- Spinal bifida, closedPAST SURGICAL HISTORYProcedure Laterality Date- PAST SURGICAL HISTORY OF shunt placement in infancy or childhood (awaiting records)- PAST SURGICAL HISTORY OF EYE SURGERY- PAST SURGICAL HISTORY OF MULTIPLE SPINAL SURGERIESFAMILY HISTORYProblem Relation Age of Onset- ANUERYSYM [Other] [OTHER] Paternal Grandmother- Heart Paternal GrandfatherSocial HistorySubstance Use Topics- Smoking status: Never Smoker- Smokeless tobacco: Never Used- Alcohol use NoALLERGIES:ALLERGIESAllergen Reactions- Latex AnaphylaxisMEDICATIONSlansoprazole (PREVACID) 30 mg capsule Take 1 capsule by mouth twice daily.norgestimate 0.25 mg-ethinyl estradiol 35 mcg (SPRINTEC) 0.25-35 mg-mcgper tablet Take 1 tablet by mouth once daily. 19 29 mg iron- 1 mg chew TAKE 1 TABLET BY MOUTH EVERY DAYnitrofurantoin monohydrate and macrocrystal (MACROBID) 100 mg capsule Take1 capsule by mouth once daily. start when done w/ keflexibuprofen (MOTRIN) 600 mg tablet Take 1 tablet by mouth every 6 hours asneeded.Catheter 12 Fr misc 12 Slovenian catheter for self catheterizing REF 212 foruse 6-7 times a dayCatheter 12 Fr misc Use 6 to 8 times daily and as needed DX [phone] HFA 90 mcg/Actuation INHALATION inhaler Inhale 2 Puffs asinstructed every 6 hours as needed. May give Ventolin or other coveredalbuterol HFAREVIEW OF SYSTEMS:GENERAL: Negative for: Weight loss or gain, Fever or Chills, Weakness andSleep difficulties.Physical Examination:BP 90/52 Pulse 80 Resp 16 Ht 4' 9 (1.45m) Wt 97 lb (44.0kg) BMI20.98 kg/(m2).Extended Vitals not filed for this encounter.General appearance: Well appearing, alert, in no acute distress,well-hydrated, well nourished.Skin: Skin color, texture, turgor normal , no suspicious rashes or lesionsHead: Normocephalic, no masses, lesions, tenderness or abnormalitiesNeck: Supple, no adenopathy; thyroid symmetric, normal size, no bruitsLungs: Lungs clear to auscultation. No wheezing, rhonchi, ralesHeart: RRR without murmur, gallop, or rubs.Abdomen: Abdomen soft, non-tender. Bowel sounds normal. No masses,organomegalyMSK: Short stature, scoliosis, no edema, skin discoloration, clubbing orcyanosis. Good capillary refill.Peripheral pulses: NormalNeuro: Gait normal. . Sensation grossly intact.Reviewed chart, outside records, testsI personally interviewed, confirmed and edited the above information ifobtained by others.TESTING:No results found for: GLUC, K, NA, CHLOR, CO2, CREAT, BUN, ANION, CANo results found for: GLUC, K, NA, CHLOR, CO2, CREAT, BUN, ANION, CA,TPROT, ALB, TBILI, ALKPHOS, AST, ALTHemoglobin (g/dL)Date Value10/09/2015 8.7 Hematocrit (%)Date Value10/09/2015 30.0 WBC (k/uL)Date Value10/09/2015 10.94 No results found for: CHOL, HDL, LDL, TGNo results found for: ZCP4LEhjuwxdk Fraction: No results foundIMPRESSION:Ms. Rosen is a 32 year old woman presents for physical exam.After my examination and review of data, I make the followingrecommendations.PLAN AND RECOMMENDATIONS:1. Need for vaccination - ICD9: V05.9, ICD10: Z23 (primary diagnosis)Declines flu shot2. Iron deficiency anemia , unspecified iron deficiency anemia type - ICD9:280.9, ICD10: D50.93324 noted to be anemic, problem with iron absorption- CBC + DIFF- IRON + TIBC- FERRITIN BLD- CONSULT TO GASTROENTEROLOGY3. Gastroesophageal reflux disease, esophagitis presence not specified -ICD9: 530.81, ICD10: K21.9Reports intermittent GERD, taking Prevacid 2 times daily- CONSULT TO GASTROENTEROLOGYGastroenterology consult for further evaluation anemia, colonoscopyadvised by Dr. Middleton. Consider EGD if appropriate.Advised to go to ER if develops chest pain, shortness of breath, or severeworsening of symptoms.Discussed risks, benefits, alternatives, and potential side effects ofmedications.Ms. Rosen expressed understanding and agreed with the plan.TEENA Elizalde CNOV Observed: 04/11/2017 Status: COMPLETED Source: [place] 4:00 PM [facility] REPOSITORY Office Visit (INTMWS) ---------NARDA ROSEN ([id number]) 1985 [facility] Time Provider Xtckvpulux81/21/17 4:00 PM ELENA DUNHAM) INTMWS During your visit today, we recorded the following information about you: Pulse Respiration Blood pressure Weight 80/minute 16/minute 90/52 44 kg Height 1.448 TEENA Sierra, [employer]S SALVAGER 04/11/2017 4:56 PM SignedOUTPATIENT VISIT DATE April 11, 2017OUTPATIENT VISIT TYPEESTABLUNC HEALTH NASHPRATRIUM HE[facility] WA[facility] MEDICAL CENTERRY CARE PHYSICIAN:Joe Yun, [facility] COMPLAINT: Patient presents with:PhysicalHistory of Present Illness:Narda Rosen is a 32 year old female who was last seen 2014 by Joe Franks MD.She has been seen in the past forACTIVE PROBLEM LISTNeurogenic BladderClosed Spina Bifida (Hcc)AnemiaInsomniaShort StatureIron Deficiency AnemiaIron MalabsorptionSince the last visit, she states that she has been in her usual state ofhealth. Noted to have followed with Dr. Cheung for high risk .Presents today for physical, no particular complaints other that GERD. Wellcontrolled on current medication, takes daily, twice a day. No report ofabdominal pain, N/V/D, black or tarry stools or blood in stool.History of anemia, last checked 2015. Noted to have iron deficiency, history ofmalabsorption. Prior iron infusion 10/2015. Seen by Dr. Middleton who advisedcolonscopy following delivery.Continues with urinary catheterization for neurogenic bladder, history of spinabifida.Reports healthy diet, routine exercise.No recent hospital or ED visits.No new medical problems or medications.Able to obtain medications.No problems with taking medications or note side effects.PAST MEDICAL HISTORYDiagnosis Date- Anemia- FRACTURE 2011 TOE - Insomnia- Scoliosis- Spinal bifida, closedPAST SURGICAL HISTORYProcedure Laterality Date- PAST SURGICAL HISTORY OF shunt placement in infancy or childhood (awaiting records)- PAST SURGICAL HISTORY OF EYE SURGERY- PAST SURGICAL HISTORY OF MULTIPLE SPINAL SURGERIESFAMILY HISTORYProblem Relation Age of Onset- ANUERYSYM [Other] [OTHER] Paternal Grandmother- Heart Paternal GrandfatherSocial HistorySubstance Use Topics- Smoking status: Never Smoker- Smokeless tobacco: Never Used- Alcohol use NoALLERGIES:ALLERGIESAllergen Reactions- Latex AnaphylaxisMEDICATIONSlansoprazole (PREVACID) 30 mg capsule Take 1 capsule by mouth twice daily.norgestimate 0.25 mg-ethinyl estradiol 35 mcg (SPRINTEC) 0.25-35 mg-mcg pertablet Take 1 tablet by mouth once daily. 19 29 mg iron- 1 mg chew TAKE 1 TABLET BY MOUTH EVERY DAYnitrofurantoin monohydrate and macrocrystal (MACROBID) 100 mg capsule Take 1capsule by mouth once daily. start when done w/ keflexibuprofen (MOTRIN) 600 mg tablet Take 1 tablet by mouth every 6 hours asneeded.Catheter 12 Fr misc 12 Slovenian catheter for self catheterizing REF 212 for use6-7 times a dayCatheter 12 Fr misc Use 6 to 8 times daily and as needed DX [phone] HFA 90 mcg/Actuation INHALATION inhaler Inhale 2 Puffs as instructedevery 6 hours as needed. May give Ventolin or other covered albuterol HFAREVIEW OF SYSTEMS:GENERAL: Negative for: Weight loss or gain, Fever or Chills, Weakness and Sleepdifficulties.Physical Examination:BP 90/52 Pulse 80 Resp 16 Ht 4' 9ANDquot; (1.45m) Wt 97 lb (44.0kg) BMI20.98 kg/(m2).Extended Vitals not filed for this encounter.General appearance: Well appearing, alert, in no acute distress, well-hydrated,well nourished.Skin : Skin color, texture, turgor normal, no suspicious rashes or lesionsHead: Normocephalic, no masses, lesions, tenderness or abnormalitiesNeck: Supple, no adenopathy; thyroid symmetric, normal size, no bruitsLungs: Lungs clear to auscultation. No wheezing, rhonchi, ralesHeart: RRR without murmur, gallop , or rubs.Abdomen: Abdomen soft, non-tender. Bowel sounds normal. No masses, organomegalyMSK: Short stature, scoliosis, no edema, skin discoloration, clubbing orcyanosis. Good capillary refill.Peripheral pulses: NormalNeuro: Gait normal. . Sensation grossly intact.Reviewed chart, outside records, testsI personally interviewed, confirmed and edited the above information ifobtained by others.TESTING:No results found for: GLUC, K, NA, CHLOR, CO2, CREAT, BUN, ANION, CANo results found for: GLUC, K, NA, CHLOR, CO2, CREAT, BUN, ANION, CA, TPROT,ALB, TBILI, ALKPHOS, AST, ALTHemoglobin (g/dL)Date Value10/09/2015 8.7 Hematocrit (%)Date Value10/09/2015 30.0 WBC (k/uL)Date Value10/09/2015 10.94 No results found for: CHOL, HDL, LDL, TGNo results found for: [id number] Fraction: No results foundIMPRESSION:Ms. Rosen is a 32 year old woman presents for physical exam.After my examination and review of data, I make the following recommendations.PLAN AND RECOMMENDATIONS:1. Need for vaccination - ICD9: V05.9, ICD10: Z23 (primary diagnosis)Declines flu shot2. Iron deficiency anemia, unspecified iron deficiency anemia type - ICD9: 280.9, ICD10: D50.12063 noted to be anemic, problem with iron absorption- CBC + DIFF- IRON + TIBC- FERRITIN BLD- CONSULT TO GASTROENTEROLOGY3. Gastroesophageal reflux disease, esophagitis presence not specified - ICD9:530.81, ICD10: K21.9Reports intermittent GERD, taking Prevacid 2 times daily- CONSULT TO GASTROENTEROLOGYGastroenterology consult for further evaluation anemia, colonoscopy advised byDr. Middleton. Consider EGD if appropriate.Advised to go to ER if develops chest pain, shortness of breath, or severeworsening of symptoms.Discussed risks, benefits, alternatives, and potential side effects ofmedications.Ms. Rosen expressed understanding and agreed with the plan.Ayan Elizalde, TEENA, PARTS SALVAGER 04/11/2017 4:39 PM SignedCheck iron levels, lab orders placedReferring Provider: SELF [200]Allergies As of Date: 04/11/2017 Noted Allergy ReactionLATEX 02/17/2011 10 - AnaphylaxisDate Reviewed: 04/11/2017Reviewed by: Karo Salgado LPN - Fully AssessedReason for Visit: Physical [83] Imm/Inj [58] Cmt: Flu VaccineReason For Visit History RecordedPrimary Visit Diagnosis:Need for vaccination [Z23] Other Visit Diagnoses:Iron deficiency anemia, unspecified iron deficiency anemia type [D50.9] Gastroesophageal reflux disease, esophagitis presence not specified [K21.9]Order(s):CBC + DIFF [SQCBCDIF] Order #: [id number] FUTURE IRON + TIBC [SQIRON] Order #: [id number] FUTURE FERRITIN BLD [SQFERR] Order #: [id number] FUTURE CONSULT TO GASTROENTEROLOGY [9010] Order #: [id number]: 1Prescriptions as of 2016 Sig: LANSOPRAZOLE 30 MG CAPSULE,DE* Take 1 capsule by mouth twice* NORGESTIMATE 0.25 MG-ETHINYL * Take 1 tablet by mouth once d* CATHETER 12 FR 12 Slovenian catheter for self c* CATHETER 12 FR Use 6 to 8 times daily and as*Medication notes this encounter 19 29 MG IRON-1 MG CHEWABLE TABLET >> Karo Hotte AIRPORT SCREENER 04/11 4:06 PM >> HOTTE, KARO AIRPORT SCREENER MonApr 11, 2017 4:06 PM Not taking NITROFURANTOIN MONOHYDRATE AND MACROCRYSTAL 100 MG ORAL CAP >> Karo Hotte AIRPORT SCREENER 04/11/2017 4:06 PM >> HOTTE, KARO AIRPORT SCREENER MonApr 11, 2017 4:06 PM Not taking IBUPROFEN 600 MG TABLET & gt;> Karo Hotte AIRPORT SCREENER 04/11/2017 4:06 PM >> HOTTE, KARO AIRPORT SCREENER MonApr 11, 2017 4: 06 PM Not takingProblem List As Of Date 04/11/2017 Noted Resolved Neurogenic bladder [N31.9] INVALID FOR* More... Closed spina bifida (HCC) [Q05.9] More... Anemia [D64.9] More... Insomnia [G47.00] SUPRF HIGH RISK NEC [V23.89] [O09.899] INVALID FOR*04/02/2014 More... Patient request for diagnostic testing [Z01.89] INVALID FOR*2011 More... GBS (group B Streptococcus carrier), +RV cultur*INVALID FOR*02/21/2014 More... Short stature [R62.52] INVALID FOR* History of delivery, currently *INVALID FOR*04/02/2014 More... History of delivery [Z87.51] INVALID FOR*01/14/2016 More... Supervision of high risk in third tri*INVALID FOR*2015 Antepartum anemia in second trimester [O99.012] INVALID FOR*01/14/2016 More... Iron deficiency anemia [D50.9] INVALID FOR* Iron malabsorption [K90.9] INVALID FOR* Other instructions from your clinician: Check iron levels, lab orders placedMedications Discontinued During This Encounter 19 29 mg iron- 1 mg chew 100 * 3 04/25/2016 04/11/2017 Sig: TAKE 1 TABLET BY MOUTH EVERY DAY Disc: Reason for discontinue is not on file. nitrofurantoin monohydrate and macro* 30 c* 6 02/29/2016 04/11/2017 Route: ORAL Sig: Take 1 capsule by mouth once daily. start when done w/ keflex Disc: Reason for discontinue is not on file. ibuprofen (MOTRIN) 600 mg tablet 60 t* 0 02/15/2016 04/11/2017 Route: ORAL Sig: Take 1 tablet by mouth every 6 hours as needed. Disc: Reason for discontinue is not on file. albuterol HFA 90 mcg/Actuation INHAL* 1 In* 2 03/09/2011 04/11/2017 Class: Print RX Route: INHALATION Sig: Inhale 2 Puffs as instructed every 6 hours as needed. May give Ventolin or other covered albuterol HFA Disc: Reason for discontinue is not on file. Status:Closed by ELENA PRATER on 04/11/17 OBSOLETE Observed: 03/28/2017 Status: COMPLETED Source: KRISTEN 12:00 AM [facility] REPOSITORY Refill (INTMWS) ---------NARDA ROSEN ([id number]) 1985 FDate Time Provider Acwzkbpabr10/7/17 JOE YUN INTMWS During your visit today, we recorded the following information about you:Josefina John Psr 03/28/2017 4:58 PM SignedPatient has been identified by name and date of : YesRX INSTRUCTIONS:Patient aware RX will be sent to pharmacy. No need to notify patient.Josefina Yun MD 2016 9:55 PM SignedLast seen 2015--needs follow upThese meds were given by WATER SUPERVISOR who saw her most recentlyRemichael Cheung MD 03/29/2017 9:00 AM SignedPatient's request for medication is as followsSigned Prescriptions Disp Refills lansoprazole (PREVACID) 30 mg capsule 60 capsule 3 Sig: Take 1 capsule by mouth twice daily. ANGELLA: No Authorizing Provider: LUCY CHEUNG norgestimate 0.25 mg-ethinyl estradiol 35 mcg (SPRINTEC) 0.25-35 mg-mcg pertablet 1 Package 12 Sig: Take 1 tablet by mouth once daily. ANGELLA: No Authorizing Provider: LUCY CHEUNG entered - please phone pharmacy and notify patient. Should make appt for f/u for PCP. Does she still take macrobid? I think thiswas just for . Jacquelin Castillo AIRPORT SCREENER 03/30 11:05 AM SignedPlease call pt to arrange routine appt with pcp or her CHIEF PETROLEUM ENGINEER Elena Dunham.Fabiola Guillaume Psr 04/05/2017 1:29 PM SignedCalled and left a message on patient's phone to call back and schedule for aroutine follow-upBeth Rhona AIRPORT SCREENER 04/05/2017 3:08 PM SignedPatient returned call and went over notes below scheduled appt for her andhusband then she told me starting new job in April and will not haveinsurance. Advised her to come in and see financial counselors to getassistance with appt coverage.Allergies As of Date: 03/28/2017 Noted Allergy ReactionLATEX 02/17/2011 10 - AnaphylaxisDate Reviewed: 2015Reviewed by: Jessie Money Ma - Fully AssessedReason for Visit: Refill Request [94]Order(s): lansoprazole (PREVACID) 30 mg capsuleTake 1 capsule by mouth twice daily.Disp: 60 capsuleRfl: 3 norgestimate 0.25 mg-ethinyl estradiol 35 mcg (SPRINTEC) 0.25-35 mg-mcg per tabletTake 1 tablet by mouth once daily.Disp: 1 PackageRfl: 12Prescriptions as of 03/28/2017 Sig: LANSOPRAZOLE 30 MG CAPSULE,DE* Take 1 capsule by mouth twice* NORGESTIMATE 0.25 MG-ETHINYL * Take 1 tablet by mouth once d* 19 29 MG IRON-1 MG C* TAKE 1 TABLET BY MOUTH EVERY * NITROFURANTOIN MONOHYDRATE AND * Take 1 capsule by mouth once * IBUPROFEN 600 MG TABLET Take 1 tablet by mouth every * CATHETER 12 FR 12 Slovenian catheter for self c * CATHETER 12 FR Use 6 to 8 times daily and as* ALBUTEROL SULFATE HFA 90 MCG/* Inhale 2 Puffs as instructed *Problem List As Of Date 03/28/2017 Noted Resolved Neurogenic bladder [N31.9] INVALID FOR* More... Closed spina bifida (HCC) [Q05.9] More... Anemia [D64.9] More... Insomnia [G47.00] SUPRF HIGH RISK NEC [V23.89] [O09.899]INVALID FOR*04/02/2014 More... Patient request for diagnostic testing [Z01.89] INVALID FOR*03/06/2012 More... GBS (group B Streptococcus carrier), +RV cultur* INVALID FOR*02/21/2014 More... Short stature [R62.52] INVALID FOR* History of delivery, currently *INVALID FOR*04/02/2014 More... History of delivery [Z87.51] INVALID FOR*01/14/2016 More... Supervision of high risk in third tri*INVALID FOR*01/14/2016 Antepartum anemia in second trimester [O99.012] INVALID FOR* More... Iron deficiency anemia [D50.9] INVALID FOR* Iron malabsorption [K90.9] INVALID FOR*Prescriptions ordered this encounter Disp Refills Start End LANSOPRAZOLE 30 MG CAPSULE,DELAYED R* 60 c* 3 03/29/2017 Route: ORAL Sig: Take 1 capsule by mouth twice daily. NORGESTIMATE 0.25 MG-ETHINYL ESTRADI* 1 Pa* 12 03/29 Route: ORAL Sig: Take 1 tablet by mouth once daily.Medications Discontinued During This Encounter lansoprazole (PREVACID) 30 mg capsule 60 c* 0 06/07/2016 03/29/2017 Route: ORAL Sig: Take 1 capsule by mouth twice daily. Disc: Reason for discontinue is not on file. norgestimate 0.25 mg-ethinyl estradi* 1 Pa* 12 05/09/2016 03/29/2017 Route: ORAL Sig: Take 1 tablet by mouth once daily. Disc: Reason for discontinue is not on file. Status:Closed by JONG PARISH CMA on 04/07/17 ALLERGIES ALLERGIES DATE TYPE / CODE NAME / CODE REACTION SEVERITY SOURCE 09/06/2014 Drug latex/L58630 Anaphylaxis Unknown [facility] Allergy/416 8921(RXNORM) [facility] [id number](SNOM Repository ED CT) 02/17/2011 DRUG LATEX ANAPHYLAXIS High [facility] INGREDI/[address] [place] [address] [id number](SNOM Repository ED CT) ENCOUNTERS ENCOUNTERS ADMIT/DISCHARGE ACCOUNT ADMITTING ENCOUNTER LOCATION SOURCE NUMBER CLASS 07/26/2017/07/27/[id number] Repository 07/12/2017/07/12/19 [id number] Ambulatory [address] Repository 06/28/2017/06/28/[id number] Repository 06/28/2017/06/28/19 [id number] Ambulatory [address] Repository 06/01/2017/06/01/19 [id number] Ambulatory [address] Repository 06/01/2017/06/05/[id number] Repository 05/03/2017/05/03/20 [id number] Ambulatory [address] Repository 05/03/2017/05/04/20 [id number] Ambulatory [address] Repository 05/03/2017/05/04/20 [id number] Ambulatory [address] Repository 04/11/2017/06/30/19 [id number] Ambulatory [address] Repository 2017 [id number] Ambulatory [facility] ing:LAB.BRIANA Repository E PAYERS PAYERS ENCOUNTER GUARANTOR PAYER SUBSCRIBER SOURCE 2017 Nardauzair Rosen[address] Primary Dk Yang [facility] [place]D[facility]: [id number] [address]Rbu: [phone]) [id number] Repository [phone] () Date:[id number] [id number]: 2017 Secondary Narda HicksOB: [place] Insurance:MEDICARE [id number] Community PART A [facility] Number: Repository [id number] Date:2011-12-21 2017 Tertiary NOT GIVENUNK [place] Insurance:SELF PAY [facility] Number: Effective Repository Date:2017
== END 2017-04-20 17:00 ==
PROVIDERS: Family Provider Internal Medicine; PCP Internal Medicine; Visit Provider Clinical Nurse Specialist
DX: D50.9 Iron deficiency anemia, unspecified (principal)
CPT/HCPCS: 85025

== ENCOUNTER 2017-08-22 15:10 | Inpatient (IN) | payer OTHER, MEDICARE, SELFPAY ==
[2017-08-22 15:35] VITALS: BMI 25.2
[2017-08-22 15:53] VITALS: BP 168/117; PULSE 117
[2017-08-22] MEDS: Lactated Ringers 1,000 ML 50 ML IV ×4 (16:00→22:40)
[2017-08-22 16:27] LABS: Hematocrit 40.4 % (37-47); Hemoglobin 13.3 g/dl (12.0-15.0); Mean Corp Hgb Conc 32.9 g/gl (32-36); Mean Corpuscular Hgb 29.6 pg (27.0-32.0); Mean Platelet Vol. 11.5 fl (6.2-12.0); Platelet Count 178 K/mm3 (150-450); RBC Distribution Width CV 14.2 % (11.6-14.6); RBC Distribution Width SD 46.6 fl (35.1-43.9); Red Blood Count 4.49 M/mm3 (4.2-5.4); White Blood Count 17.2 K/mm3 (4.4-11.0)
[2017-08-22 16:31] LABS: Scan Indicated on CBC? Y/N NO
[2017-08-22 16:41] LABS: International Normalized Ratio 0.9; Prothrombin Time (Protime)PT. 12.3 SECONDS (11.7-14.9)
[2017-08-22 16:42] LABS: Partial Thromboplast Time 25.7 Seconds (24.1-36.2)
[2017-08-22 16:43] LABS: AST(SGOT) 16 U/L (15-37); Alanine Aminotransfer ALT/SGPT 12 U/L (13-56); Creatinine, Serum 0.49 mg/dL (0.55-1.02); EST Glomerular Filtration Rate 154 mL/min (>60); Est Glom Filt Rate - Afr Amer 187 mL/min (>60); Estimated Creatinine Clearance 137.91 ml/min; Uric Acid 5.2 mg/dL (2.6-6.0)
[2017-08-22] MEDS: Ondansetron 4 MG/2 ML Vial IV (18:24)
[2017-08-22 21:02] VITALS: BP 161/98; PULSE 136
[2017-08-22 21:24] VITALS: BP 172/106; PULSE 136
--- NOTE | 2017-08-22 21:37 | NURSING ---
5 mg Hydralazine IV @ 2102 for BP and HR of 172/106 HR of 136 10 mg Hydralazine IV @ 2124 for BP and HR of 188/115 HR of 142
[2017-08-22 21:40] LABS: Amphetamine Urine VISTA NEGATIVE (<1000 ng/mL); Barbiturate Urine VISTA NEGATIVE (< 200 ng/mL); Benzodiazepine Urine VISTA NEGATIVE (< 200 ng/mL); Cocaine Urine VISTA NEGATIVE (< 300 ng/mL); Ecstacy Urine VISTA NEGATIVE (< 500 ng/mL); Methadone Urine VISTA NEGATIVE (< 300 ng/mL); PCP Urine VISTA NEGATIVE (< 25 ng/mL); THC Urine VISTA NEGATIVE (< 50 ng/mL); Vista UDS pH Range 6
[2017-08-22 21:45] LABS: Protein, Urine (Random) 317.4 mg/dL (<11.9); Protein:Creat Ratio 7038 mg/g CRE (0-200)
--- NOTE | 2017-08-22 21:49 | HP.PCM_ITS ---
History Date of Admission: 08/22/17 Final MARY: 09/05/17 Gestational age: 38 Weeks and 0 Days History of this : Polyhydramnios Positive GBS Late PNC - 22 weeks Pertinent Past Medical History: Closed spina bifida Neurogenic bladder Anemia Allergies latex Allergy (Verified 09/06/14 21:07) Anaphylaxis Current Medications Acetaminophen (Tylenol) 325 - 650 mg PO Q4H PRN PRN PRN Reason: PAIN OR FEVER >100.4F Al Hydroxide/Mg Hydroxide (Mylanta Ii) 15 - 30 ml PO Q4H PRN PRN PRN Reason: INDIGESTION Citric Acid/Sodium Citrate (Bicitra) 30 ml PO UD PRN Hydralazine HCl (Apresoline Iv) 5 - 10 mg IV Q20M PRN; Protocol PRN Reason: SBP>160/110mmHg Last Admin: 08/22/17 21:02 Dose: 5 mg Lactated Ringer's () 1,000 mls @ 50 mls/hr IV .Q20H CHRIS Last Admin: 08/22/17 21:18 Dose: 50 mls/hr Oxytocin/Sodium Chloride () 30 units in 500 mls @ 1 mls/hr IV .Q500H CHRIS Ampicillin Sodium 1,000 mg/ (Sodium Chloride) 54 mls @ 150 mls/hr IV Q4H CHRIS Last Admin: 08/22/17 21:17 Dose: 150 mls/hr Midazolam HCl (Versed) 2 mg IV Q5M PRN PRN Reason: SEIZURE Nalbuphine HCl (Nubain) 5 - 10 mg IV Q3H PRN PRN PRN Reason: PAIN (4-10/10) Ondansetron HCl (Zofran) 4 mg IV Q8H PRN PRN PRN Reason: NAUSEA Last Admin: 08/22/17 18:24 Dose: 4 mg Promethazine HCl (Phenergan Iv) 6.25 - 12.5 mg IV Q4H PRN PRN; Protocol PRN Reason: IF NAUSEA PERSISTS Sodium Chloride () 5 - 15 ml IV UD [facility] Last Admin: 08/22/17 17:10 Dose: Not Given Smoking Status: Never smoker Alcohol: None Drug Use: none Number of Fetus(es): 1 Physical Exam Vitals: Vital Signs Pulse BP 136 H 161/98 H 08/22/17 21:02 08/22/17 21:02 General: Alert, Oriented x3 Abdomen: Soft, Non Tender, Non-Distended Presentation: Cephalic Cervix Dilation (cm): 4 - on admission now 9 Station: 0 Effacement (%): 80 Assessment/Plan 32yo female @ 38wks in labor Admit to L&D GBS positive Expectant management Pain - nitrous oxide if desired EFW less than 4500g, adequate pelvis
[2017-08-22] MEDS: Oxytocin 30 units/NS 500 ml 30 UNITS/500 ML IV.SOLN 334 UNITS IV (23:45)
[2017-08-23] MEDS: Oxytocin 30 units/NS 500 ml 30 UNITS/500 ML IV.SOLN 167 UNITS IV (00:15)
--- NOTE | 2017-08-23 00:32 | PCM.OB.VAG ---
Vaginal Delivery Maternal Presentation: Active Labor Amniotic Membrane Rupture Type: Spontaneous Amniotic Fluid Description: Clear Final MARY: 09/05/17 Gestational age: 38 Weeks Date of Procedure: 08/23/17 Pre-Operative Diagnosis: Labor Post-Operative Diagnosis: Labor Surgery/ Procedure Performed: Spontaneous Vaginal Delivery Type of Anesthesia: Local with 2% lidocaine Description of Procedure: Patient anterior lip/c/+1 and feeling pressure. Patient pushed past anterior lip & was complete. She pushed to deliver head. Tight nuchal cord clamped & cut. Gentle traction placed on head to allow delivery of anterior & posterior shoulders. No excess traction placed on head. Body delivered and infant placed on maternal abdomen. Placenta delivered with gentle traction. Good uterine tone obtained. Presentation: ALYSSA Placental Delivery Description: Expressed Placenta Disposition: [facility] Cord Vessel Description: 3 Vessels Cord Entanglement: Around neck x 1, tight Drain: Walker to straight drain Estimated Blood Loss: 300ml Infant A gender: Female (1 minute): 5 (5 minute): 9 Episiotomy Description: None Laceration: 2nd degree - perineal - repaired with 3-0 vicryl Medications given after delivery: IV Pitocin Complications: None
[2017-08-23] MEDS: Ketorolac 30 MG/ML Syringe IV (01:27)
[2017-08-23] MEDS: 0.9% Saline Lock 10 ML Syringe IV (01:27)
[2017-08-23] MEDS: Acetaminophen 500 MG Tablet 1000 MG PO ×2 (02:37→10:53)
[2017-08-23 03:40] VITALS: BP 89/52; PULSE 98; RESP 17; TEMP 36.7; O2SAT 97
[2017-08-23 08:50] VITALS: BP 95/51; PULSE 76; RESP 17; TEMP 36.6; O2SAT 100
--- NOTE | 2017-08-23 09:51 | PCM.PN.OB ---
Subjective: pain well controlled, average lochia. Denies PRADO or visual changes, no epigastric pain. - Physical Exam General: Alert, Cooperative, No apparent distress Extremities: Edema - 1+ lower extremeties, - - no clonus, 3+ patellar reflexes, 2+ elsewhere Vital Signs Temp Pulse Resp BP Pulse Ox 97.8 F 76 17 95/51 L 100 08/23/17 08:50 08/23/17 08:50 08/23/17 08:50 08/23/17 08:50 08/23/17 08:50 Oxygen Delivery Method Room Air Weight: 53 kg Body Mass Index (BMI) 25.2 Intake and Output for Last 24 Hours 08/21/17 08/22/17 08/23/17 23:59 23:59 23:59 Intake Total 4814 / 4814 Output Total 900 / 900 Balance 3914 / 3914 Laboratory Tests Past 24 Hrs 08/22/17 08/22/17 08/22/17 16:00 16:00 16:00 WBC 17.2 H RBC 4.49 Hgb 13.3 Hct 40.4 MCV 90.0 MCH 29.6 MCHC 32.9 RDW 14.2 RDW Differential 46.6 H Plt Count 178 MPV 11.5 PT 12.3 INR 0.9 APTT 25.7 Creatinine Estim Creat Clear Calc Est GFR (MDRD) Af Amer Est GFR (MDRD) Non-Af Uric Acid AST ALT U Random Total Protein Urine Creatinine Protein/Creatinin Ratio Urine Opiates Screen Urine Methadone Screen Ur Barbiturates Screen Ur Phencyclidine Scrn Ur Amphetamines Screen U Methamphetamin-MDMA U Benzodiazepines Scrn Urine Cocaine Screen U Cannabinoids Screen Ur Drug Screen Comment Blood Type O POSITIVE Antibody Screen NEGATIVE 08/22/17 08/22/17 08/22/17 16:00 20:44 20:44 WBC RBC Hgb Hct MCV MCH MCHC RDW RDW Differential Plt Count MPV PT INR APTT Creatinine 0.49 L Estim Creat Clear Calc 137.91 Est GFR (MDRD) Af Amer 187 Est GFR (MDRD) Non-Af 154 Uric Acid 5.2 AST 16 ALT 12 L U Random Total Protein 317.4 H Urine Creatinine 45.10 Protein/Creatinin Ratio 7038 H Urine Opiates Screen NEGATIVE Urine Methadone Screen NEGATIVE Ur Barbiturates Screen NEGATIVE Ur Phencyclidine Scrn NEGATIVE Ur Amphetamines Screen NEGATIVE U Methamphetamin-MDMA NEGATIVE U Benzodiazepines Scrn NEGATIVE Urine Cocaine Screen NEGATIVE U Cannabinoids Screen NEGATIVE Ur Drug Screen Comment Blood Type Antibody Screen Medical Necessity - Tobacco Use Smoking Status: Never smoker Assessment/Plan PPD#1 routine care and doing well likely home tomorrow
[2017-08-23 12:30] VITALS: BP 140/78; PULSE 81; RESP 16; TEMP 37; O2SAT 99
[2017-08-23] MEDS: Ibuprofen 600 MG Tablet PO ×2 (13:50→20:00)
[2017-08-23 15:30] VITALS: BP 106/66; PULSE 86; RESP 16; TEMP 37.1; O2SAT 98
--- NOTE | 2017-08-23 16:26 | NURSING ---
Hernandez removed with 800cc in hernandez
[2017-08-23 22:00] VITALS: BP 145/86; PULSE 107; RESP 18; TEMP 37.1
[2017-08-23] MEDS: oxyCODONE 5 MG Tablet PO (22:05)
[2017-08-24 02:00] VITALS: BP 110/67; PULSE 82; RESP 16
[2017-08-24] MEDS: oxyCODONE 5 MG Tablet PO ×2 (02:27→08:08)
--- NOTE | 2017-08-24 07:27 | DCINST_ITS ---
Discharge Diet: No Restrictions Discharge Activity: Return to Normal Activity, May not drive while taking narcotic pain medications., May Shower May resume sexual activity in: 4-6 weeks Additional Activity Instructions:: Nothing in the vagina for 4-6 weeks. You may return to work/school in 6 weeks. Call your doctor if your incision/area has: Continuous Slow Oozing, Sudden Increased Bleeding, Increased Pain/ Swelling, Increased Redness, Foul Smelling Discharge Additional Instructions: If you experience any of the following, contact your healthcare provider. * Bleeding that soaks a pad every hour for 2 hours * Fever 100.4 or higher * Unrelieved incision or abdominal pain * Swelling, redness, discharge or bleeding from your incision or episiotomy site * Your incision begins to separate * Problems urinating (including inability to urinate or burning while urinating) . * Visual changes * Severe headache * Flu-like symptoms * Pain or redness in one of both of your breasts * Pain, warmth, tenderness or swelling in your legs, especially the calf area * Frequent nausea and vomiting * Symptoms of depression or anxiety If you experience any of the following, call 911 or go to the nearest Emergency Room. * Chest pain * Problems breathing * Seizure activity * Partial or complete paralysis of a body part, slurred speech, weakness or drooping of the face, or a sudden inability to walk or hold your balance Allergies/Adverse Reactions: Allergies latex Allergy (Verified 09/06/14 21:07) Anaphylaxis Medications to take at Discharge Lansoprazole [Prevacid] 15 mg PO BID 02/17/14 Vits 1 tab PO DAILY 02/17/14 Ferrous Sulfate 325 mg PO DAILY 08/22/17 Ibuprofen [Motrin] 600 mg PO Q6H PRN #60 tab 08/24/17 The following prescriptions were given: Ibuprofen [Motrin] 600 mg PO Q6H PRN #60 tab PRN Reason: Pain Please Follow Up With: Nora Tanner MD - [phone] When: Call to make an appointment with your doctor in 6 weeks. If you had elevated Blood Pressure or 4th degree laceration you will need to be seen in 1 weeks. Primary Care Physician: Mallory Yun MD [Primary Care Provider] -
[2017-08-24 07:58] VITALS: BP 115/72; PULSE 88; RESP 16; TEMP 37.1; O2SAT 98
[2017-08-24 13:27] VITALS: BP 127/71; PULSE 100; RESP 18; TEMP 36.7; O2SAT 98
--- NOTE | 2017-08-24 13:31 | PCM.PN.OB ---
Subjective: pain well controlled, some cramping w/ nursing Average lochia - Physical Exam General: Alert, Cooperative, No apparent distress Vital Signs Temp Pulse Resp BP Pulse Ox 98.1 F 100 18 127/71 H 98 08/24/17 13:27 08/24/17 13:27 08/24/17 13:27 08/24/17 13:27 08/24/17 13:27 Oxygen Delivery Method Room Air Weight: 53 kg Body Mass Index (BMI) 25.2 Intake and Output for Last 24 Hours 08/22/17 08/23/17 08/24/17 23:59 23:59 23:59 Intake Total 4814 / 4814 Output Total 1900 / 1900 Balance 2914 / 2914 Medical Necessity - Tobacco Use Smoking Status: Never smoker Assessment/Plan PPD #2 doing well routine care ready for d/c infant and doingw ell
--- NOTE | 2017-08-24 13:44 | PCM.OPRPT ---
Report of Operation Date of Procedure: 08/24/17 Pre-Operative Diagnosis: opened in error Post-Operative Diagnosis: same Surgery/Procedure Performed:: none Description of Surgical Findings:: Surgeon: Dr. Samra Nichols Bunch Maker: Dr. Nora Tanner Second hotel assistant manager: Medical student Maria R Horvath Preoperative diagnosis: Pelvic pain, bilateral ovarian cysts, desires contraception PostOperative diagnosis: Same stage IV endometriosis findings: Endometriotic implants over omentum, appendix, entire pelvic cavity Complications: none anesthesia: General implantable devices: Paragard IUD EBL: minimal operative note: Informed consent was obtained the patient was taken to the operating room she was placed in supine position. She was given general anesthesia. She was then placed in the [facility]. He was prepped and draped in the normal sterile fashion. Exam under anesthesia revealed adnexal fullness in the left. At this time the weighted speculum was placed in the posterior fornix of the vagina. Tenaculum was used to grasp the anterior lip the cervix. uterus was sounded to 8cm. Uterine manipulator placed without difficulty. Attention was then turned to abdominal portion. Towel clamps placed on either side of umbilicus. Marcaine was injected. Small incision made with scalpel. 5mm trochar placed under direct visualization. Once proper placement was achieved the gas was used to insufflate cavity. upon inspection stabe IV endometriosis was appreciated- extending to omentum, anterior abdominal wall, appendix and pelvic cavity with obliterated CDS. decision was made to stop procdure. will refer to Specialist for further resection. trochar removed- 4-0 monocryl used for incision site and dermabond placed. Next the manipulator was removed and the Paragard was then placed without difficulty. strings cut to 2.5cm from os. vaginal sweep negative. Pictures for documentation were taken. Will discuss plan with patient at her post op appointment. mining helper: None
[2017-08-24] MEDS: Ibuprofen 600 MG Tablet PO (13:47)
--- NOTE | 2017-08-24 13:54 | OP.PCM_ITS ---
Report of Operation Date of Procedure: 08/24/17 Pre-Operative Diagnosis: opened in error Post-Operative Diagnosis: same Surgery/Procedure Performed:: none Description of Surgical Findings:: Surgeon: Dr. Samra Nichols Cafeteria Cook: Dr. Nora Tanner Second oceanographer assistant: Medical student Maria R Horvath Preoperative diagnosis: Pelvic pain, bilateral ovarian cysts, desires contraception PostOperative diagnosis: Same stage IV endometriosis findings: Endometriotic implants over omentum, appendix, entire pelvic cavity Complications: none anesthesia: General implantable devices: Paragard IUD EBL: minimal operative note: Informed consent was obtained the patient was taken to the operating room she was placed in supine position. She was given general anesthesia. She was then placed in the [facility]. He was prepped and draped in the normal sterile fashion. Exam under anesthesia revealed adnexal fullness in the left. At this time the weighted speculum was placed in the posterior fornix of the vagina. Tenaculum was used to grasp the anterior lip the cervix. uterus was sounded to 8cm. Uterine manipulator placed without difficulty. Attention was then turned to abdominal portion. Towel clamps placed on either side of umbilicus. Marcaine was injected. Small incision made with scalpel. 5mm trochar placed under direct visualization. Once proper placement was achieved the gas was used to insufflate cavity. upon inspection stabe IV endometriosis was appreciated- extending to omentum, anterior abdominal wall, appendix and pelvic cavity with obliterated CDS. decision was made to stop procdure. will refer to Specialist for further resection. trochar removed- 4-0 monocryl used for incision site and dermabond placed. Next the manipulator was removed and the Paragard was then placed without difficulty. strings cut to 2.5cm from os. vaginal sweep negative. Pictures for documentation were taken. Will discuss plan with patient at her post op appointment. department store manager: None
== END 2017-08-24 14:55 | disposition home or self-care (01) | DRG 775 ==
PROVIDERS: Admitting Provider Obstetrics & Gynecology; Family Provider Internal Medicine; PCP Internal Medicine; Visit Provider Obstetrics & Gynecology
DX: O99.824 Streptococcus B carrier state complicating childbirth (principal); O69.1XX0 Labor and delivery complicated by cord around neck, with compression, not applicable or unspecified; O70.1 Second degree perineal laceration during delivery; Z3A.38 38 weeks gestation of pregnancy; Z37.0 Single live birth
CPT/HCPCS: 59025; 59050; 80307; 82565; 82570; 84156; 84450; 84460; 84550; 85027; 85610; 85730; 86850; 86900; 99218; J7120; A4216; G0378; J0290; J2405